=== PATIENT | male | born 1970 | race African-American/Black ===

== ENCOUNTER 2018-10-17 20:17 | Emergency (ER) | payer BC ==
--- NOTE | 2018-10-17 20:41 | EDM.PDOC ---
ED HPI GENERAL MEDICAL PROBLEM - General Chief Complaint: Eye Problems Stated Complaint: EYE PROBLEM Time Seen by Provider: 10/17/18 20:41 - History of Present Illness INITIAL COMMENTS - FREE TEXT/NARRATIVE: 48-year-old male presents emergency room with contact lens problems. This evening the patient was taking his contacts out, and could not get a hold of the one in his left eye he kept working with it and couldn't find he had a friend luck attached Q-tip to his cornea and nothing moved. Interestingly the patient really has no pain no change in vision it feels like a contact isn't in place. His vision is such that it would be with the contact out. Patient is unclear of his last tetanus shot certainly over 10 years. Left Eye Pain Score (Numeric/FACES): 3 - Related Data Allergies Allergy/AdvReac Type Severity Reaction Status Date / Time No Known Allergies Allergy Verified 10/17/18 20:29 Home Meds: Home Meds Glendo-3 Fatty Acids [Glendo-3] 100 mg PO DAILY 10/17/18 [History] Past Medical History - Past Health History Medical/Surgical History: Denies Medical/Surgical History - Past Surgical History Musculoskeletal Surgical History: Reports: Other (See Below) Other Musculoskeletal Surgeries/Procedures:: bilat knee scope Social & Family History - Tobacco Use Smoking Status *Q: Never Smoker - Caffeine Use Caffeine Use: Reports: Coffee - Recreational Drug Use Recreational Drug Use: No ED ROS GENERAL - Review of Systems Review Of Systems: See Below Constitutional: Reports: No Symptoms HEENT: Reports: Eye Pain Respiratory: Reports: No Symptoms Cardiovascular: Reports: No Symptoms GI/Abdominal: Reports: No Symptoms ED EXAM GENERAL W FULL EYE - Physical Exam Exam: See Below Exam Limited By: No Limitations General Appearance: Alert, No Apparent Distress Eye Exam: Right Eye: Normal Inspection, Left Eye: Conjunctival Injection, Bilateral Eye: Foreign Body (None seen), Normal Fundi, PERRL Eyelids: Left: Edema (Minimal), Erythema (Minimal), Foreign Body (None seen lids everted no evidence of a contact), Bilateral: Normal Appearance Cornea Exam: Left: Normal Appearance, Corneal Abrasion (None seen), Corneal Ulcer (None seen), Foreign Body (Nothing found), Examined with Flourescein ( Minimal superficial abrasion) Extraocular Movements: Bilateral: Intact Pupils: Normal Accommodation Respiratory/Chest: No Respiratory Distress, Lungs Clear, Normal Breath Sounds Cardiovascular: Regular Rate, Rhythm, No Edema, No Murmur Course - Vital Signs Last Recorded V/S: Last Vital Signs Temp 36.6 C 10/17/18 20:25 Pulse 70 10/17/18 20:25 Resp 18 10/17/18 20:25 BP 169/112 H 10/17/18 20:25 Pulse Ox 99 10/17/18 20:25 - Orders/Labs/Meds Meds: Medications Discontinued Medications Generic Name Dose Route Start Last Admin Trade Name Zaida PRN Reason Stop Dose Admin Erythromycin 1 gm 10/17/18 21:04 10/17/18 21:09 Erythromycin 0.5% Ophth Oint EYELF 10/17/18 21:05 1 cm ONETIME ONE Administration Fluorescein Sodium 0.6 mg 10/17/18 20:46 10/17/18 21:09 Ful-Juliette EYELF 10/17/18 20:47 0.6 mg ONETIME ONE Administration - Re-Assessments/Exams Free Text/Narrative Re-Assessment/Exam: 10/17/18 21:23 Eyelids everted I cannot find any foreign bodies no evidence of contact lens careful examination of the cornea reveals nothing suggestive of retained lens he has a very superficial abrasion. Tetanus needs updating this is done. Departure - Departure Time of Disposition: 21:07 Disposition: Home, Self-Care 01 Clinical Impression: Contact lens/glasses fitting - Discharge Information Instructions: Corneal Abrasion, [id number] Referrals: PCP,None [Primary Care Provider] - Forms: ED Department Discharge Additional Instructions: Return to the emergency room with any questions problems worsening symptoms. Do not wear contacts for at least one week. Follow-up with a driver license agent tomorrow. Using erythromycin ointment 1 cm, approximately a third of an average, tear lower eyelid every couple hours later awake tonight. Do not wake your self up to put it.
[2018-10-17] MEDS ORDERED: Fluorescein 0.6 MG Ophth Strip EYELF ONE (20:46)
[2018-10-17] MEDS ORDERED: Erythromycin Base 0.5% Ophth Oint 1 GM Tube EYELF ONE (21:04)
[2018-10-17] MEDS ORDERED: Diphtheria,Pertussis(Acell),Tetanus Vaccine 0.5 ML Syringe IM ONE (21:18)
== END 2018-10-17 21:20 | disposition home or self-care (01) ==
LOC: JD.ED 20:17
DX: H18.822 Corneal disorder due to contact lens, left eye (principal); Z23 Encounter for immunization; Z79.899 Other long term (current) drug therapy
CPT/HCPCS: 90471; 90700; 99283; A9270; 99282